=== PATIENT | male | born 1960 | race Caucasian/White ===

== ENCOUNTER 2017-07-10 08:36 | Emergency (ER) | payer MEDICAID, OTHER ==
[~2017-07-10] VITALS: Ht 175.3 cm; Wt 81.6 kg
[2017-07-10] MEDS ORDERED: COREG (09:01)
[2017-07-10] MEDS ORDERED: AMLO5TAB2 (09:01)
[2017-07-10] MEDS ORDERED: ASPI-999 PO (09:02)
[2017-07-10] MEDS ORDERED: LIPITOR (09:06)
--- NOTE | 2017-07-10 09:11 | ED EENT ---
History of Present Illness General Chief Complaint: Cough/Cold/Flu Symptoms Stated Complaint: COUGH,CONGESTION,EAR ACHE Nursing Triage Note: ARRIVED VIA AMB TO ROOM 10. COMPLAINTS OF COUGH, CONGESTION, AND LEFT EAR PAIN FOR SEVERAL DAYS. Source: patient Exam Limitations: no limitations History of Present Illness Date Seen by Provider: Jul 10, 2017 Time Seen by Provider: 09:00 Initial Comments Patient presents to ER by private conveyance with a chief complaint that for the past 34 days she's been having, and upper a story symptoms, nasal congestion and left ear pain. He's had no discharge or drainage from the ear. He does have a history of COPD and he uses nebulized albuterol and ipratropium regularly. He does not hear or feel he is wheezing or short of breath. He is not having any chest pain other than his typical anginal symptoms that come and go at times. He is known to Dr. Flowers, cardiology in [place], [place]. He's been following up with all of his appointments. He is also noticed last couple months that he is having swelling in his feet. He has been on Norvasc for several years. He is curious if he should discontinue the Norvasc worsening else going on that might explain his swelling in his feet. Allergies and Home Medications Allergies Coded Allergies: No Known Drug Allergies (Unverified , 07/10/17) Home Medications Amlodipine Besylate 5 Mg Tablet, (Reported) Aspirin 81 Mg Tab.chew, 81 MG PO, (Reported) [Coreg] , (Reported) Review of Systems Constitutional: chills, No diaphoresis, No fever, malaise Eyes: Denies Blindness, Denies Blurred Vision, Denies Drainage Ears: Pain, Denies Tinnitus, Denies Bloody Discharge, Denies Clear Discharge Nose: congestion, denies epistaxis Mouth: denies pain, denies swelling Throat: denies pain, denies swelling Respiratory: cough, No phlegm, No short of breath, No wheezing Cardiovascular: No chest pain, No syncope Gastrointestinal: No abdominal pain, No constipation Past Csrducr-Puvnqi-Kczfre Hx Patient Social History Smoking Status: Current Everyday Smoker Type Used: Cigarettes Recent Foreign Travel: No Contact w/Someone Who Travel: No Recent Infectious Disease Expo: No Surgeries History of Surgeries: Yes (HEART CATH) Respiratory History of Respiratory Disorde: Yes Respiratory Disorders: COPD Cardiovascular History of Cardiac Disorders: Yes (HEART DZ) Cardiac Disorders: Angina, Hypertension Neurological History of Neurological Disord: No Genitourinary History of Genitourinary Disor: No Gastrointestinal History of Gastrointestinal Di: No Musculoskeletal History of Musculoskeletal Dis: No Endocrine History of Endocrine Disorders: No HEENT History of HEENT Disorders: No Cancer History of Cancer: No Psychosocial History of Psychiatric Problem: No Physical Exam Vital Signs Vital Sign - Last 12Hours 07/10/17 08:46 Temp 97.5 Pulse 78 Resp 18 B/P (MAP) 117/77 (90) Pulse Ox 98 O2 Delivery Room Air General Appearance: WD/WN, no apparent distress Eyes: bilateral eye normal inspection, bilateral eye PERRL, bilateral eye EOMI Ears: right ear auricle normal, right ear canal normal, right ear TM normal, left ear erythema, left ear swelling, left ear tenderness, left ear TM dull, left ear TM red, left ear TM bulging Nose: normal inspection, No discharge Mouth/Throat: normal mouth inspection, pharynx normal Neck: non-tender, supple, normal inspection Cardiovascular: normal peripheral pulses, regular rate, rhythm, other (trace edema bilateral lower ankle) Respiratory: chest non-tender, lungs clear, no respiratory distress, no accessory muscle use, decreased breath sounds Gastrointestinal: normal bowel sounds, non tender, soft Neurologic/Psychiatric: alert, normal mood/affect, oriented x 3 Skin: normal color, warm/dry Progress/Results/Core Measures Results/Orders Vital Signs/I&O Vital Sign - Last 12Hours 07/10/17 08:46 Temp 97.5 Pulse 78 Resp 18 B/P (MAP) 117/77 (90) Pulse Ox 98 O2 Delivery Room Air Blood Pressure Mean: 90 Progress Note : Time: 09:07 Progress Note I would not discontinue the Norvasc until you have spoke with his screen and cyclone repairer. We'll recommend compression stockings, keeping the feet elevated when not in use and follow-up with screen and cyclone repairer and/or primary care physician. His left ear is definitely infected so we'll start him on Augmentin. We will send home a prescription of steroids in case his breathing deteriorates and he needs to start them with strict return precautions. Departure Impression Impression: Primary Impression: Acute otitis media Qualified Codes: H66.002 - Acute suppurative otitis media without spontaneous rupture of ear drum, left ear Disposition: 01 HOME, SELF-CARE Condition: Stable Departure-Patient Inst. Decision time for Depature: 09:10 Referrals: NO,LOCAL PHYSICIAN (PCP/Family) Primary Care Physician Patient Instructions: Ear Infections (Otitis Media) (DC) Add. Discharge Instructions: Drink lots of fluids and use Tylenol 1000 mg every 8 hours as needed. Start the antibiotics 1 tablet twice a day to completion. If you feel that you're getting more short of breath start the steroids and follow up within 24 hours. If you begin to have new onset worsening chest pain or other worrisome symptoms he should return to the ER. All discharge instructions reviewed with patient and/or family. Voiced understanding. Scripts Prednisone (Prednisone) 20 Mg Tab 20 MG PO BID for 5 Days, #10 TAB 0 Refills Prov: MARINA BARBOUR 07/10/17 Amoxicillin/Potassium Clav (Augmentin 875-125 Tablet) 1 Each Tablet 1 EACH PO BID for 10 Days, #20 TAB 0 Refills Prov: MARINA BARBOUR 07/10/17 Benzonatate (Tessalon Perle) 100 Mg Capsule 100 MG PO Q6H Y for COUGH, #30 CAP 0 Refills Prov: MARINA BARBOUR 07/10/17 Work/School Note: Work Release Form Date Seen in the Emergency Department: Jul 10, 2017 Return to Work: Jul 11, 2017 Restrictions: No Restrictions MARINA BARBOUR Jul 10, 2017 09:11
[2017-07-10] MEDS ORDERED: PRD20T PO (09:14)
[2017-07-10] MEDS ORDERED: AMOX-358 PO (09:14)
[2017-07-10] MEDS ORDERED: BENZ-13 PO (09:14)
[2017-07-10 09:17] VITALS: BP 117/77
== END 2017-07-10 09:17 | disposition home or self-care (01) ==
LOC: ER 08:41
DX: H66.92 Otitis media, unspecified, left ear (principal); J44.9 Chronic obstructive pulmonary disease, unspecified; I10 Essential (primary) hypertension; F17.210 Nicotine dependence, cigarettes, uncomplicated; Z79.82 Long term (current) use of aspirin
CPT/HCPCS: 99282